=== PATIENT | female | born 1955 | race African-American/Black ===

== ENCOUNTER 2018-12-08 16:48 | Emergency (ER) | payer SELFPAY ==
--- NOTE | 2018-12-08 17:20 | RAD ---
XR Finger(s) Rt Min 2 View History: Pain Comparison: None. Findings: There is no acute fracture or malalignment. Subtle calcification along the medial margin di stal interphalangeal joint with a suspected be the middle finger. Impression: Calcific periarthritis distal interphalangeal joint of what is suspected to be the imaged middle finger can be a source of pain. No acute fracture.
== END 2018-12-08 17:37 | disposition home or self-care (01) ==
LOC: MADERS 16:48
DX: S56.423A Laceration of extensor muscle, fascia and tendon of right middle finger at forearm level, initial encounter (principal); X50.9XXA Other and unspecified overexertion or strenuous movements or postures, initial encounter
CPT/HCPCS: Q4049